=== PATIENT | male | born 1985 | race Hispanic/Latino ===

== ENCOUNTER 2017-02-06 06:25 | Inpatient (IN) | payer OTHER ==
[2017-02-06 06:26] VITALS: BMI 27.2
[2017-02-06] MEDS ORDERED: Levalbuterol 1.25 MG/3 ML Inhal Soln UD IH STA ×2 (07:27→07:30)
--- NOTE | 2017-02-06 07:34 | ED PDOC ---
Arrival/HPI - General Historian: Patient - History of Present Illness Time/Duration: Other (4 day s) Symptom Onset: Gradual Symptom Course: Worsening Context: Home <Angelica Yañez - Last Filed: 02/06/17 10:12> <Heri Santana P - Last Filed: 02/06/17 14:09> - General Chief Complaint: Flu-like Symptoms Time Seen by Provider: 02/06/17 07:15 - History of Present Illness Narrative History of Present Illness (Text): 02/06/17 07:31 Patient is a 32 y/o with pmh of muscular dystrophy, tobacco smoker presenting with cough productive with yellowish sputum, congestion, and subjective fever for 4 days. Patient states since Friday he has not been able to eat, he has been vomiting, the vomitus is non bloody and non bilious. Patient denies abdominal pain, denies dysuria, admits to flatus, no bowel movement since Friday. Patient admits to fatigue, body aches, dizziness, and headache. 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 (Angelica Yañez) Past Medical History - Provider Review Nursing Documentation Reviewed: Yes - Travel History Have you recently traveled outside [place] w/in the past 3 mons?: No - Infectious Disease Hx of Infectious Diseases: None - Tetanus Immunization Tetanus Immunization: Unknown - Musculoskeletal/Rheumatological Other/Comment: muscular dystrophy - Psychiatric Hx Depression: No Hx Emotional Abuse: No Hx Physical Abuse: No Hx Substance Use: No - Past Surgical History Past Surgical History: No Previous - Suicidal Assessment Feels Threatened In Home Enviroment: No <Angelica Yañez - Last Filed: 02/06/17 10:12> Family/Social History - Physician Review Nursing Documentation Reviewed: Yes Family/Social History: No Known Family HX Smoking Status: Heavy Smoker > 10 Cigarettes Daily Hx Alcohol Use: No Hx Substance Use: No <Angelica Yañez - Last Filed: 02/06/17 10:12> Allergies/Home Meds <Angelica Yañez - Last Filed: 02/06/17 10:12> <Heri Santana P - Last Filed: 02/06/17 14:09> Allergies/Adverse Reactions: Allergies No Known Allergies Allergy (Verified 02/06/17 11:36) Home Medications: Home Meds Medication Instructions Recorded Confirmed No Known Home Med 02/06/17 02/06/17 Review of Systems - Review of Systems Constitutional: Fatigue, Fevers Eyes: Normal ENT: Normal Respiratory: Cough, Sputum, Wheezing. absent: SOB Cardiovascular: Palpitations. absent: Chest Pain, Edema, Calf Pain, Orthopnea, Syncope Gastrointestinal: Constipation, Nausea, Vomiting. absent: Abdominal Pain, Diarrhea Genitourinary Male: Normal Musculoskeletal: Normal Skin: Normal Neurological: Headache, Dizziness Endocrine: Normal Hemo/Lymphatic: Normal Psychiatric: Normal <Angelica Yañez - Last Filed: 02/06/17 10:12> Physical Exam Vital Signs Reviewed: Yes Temperature: Afebrile Blood Pressure: Normal Pulse: Tachycardic Respiratory Rate: Normal Appearance: Positive for: Non-Toxic, Comfortable, Ill-Appearing Pain Distress: None Mental Status: Positive for: Alert and Oriented X 3 - Systems Exam Head: Present: Atraumatic, Normocephalic Pupils: Present: PERRL Extroacular Muscles: Present: EOMI Conjunctiva: No: Icteric Mouth: Present: Dry Pharnyx: Present: ERYTHEMA (mild ). No: EXUDATE, TONSILS ENLARGED, Uvular Deviation, Muffled/Hoarse Voice Nose (External): Present: Atraumatic Neck: Present: Normal Range of Motion. No: Meningeal Signs, MIDLINE TENDERNESS , Paraspinal Tenderness, JVD, Lymphadenopathy Respiratory/Chest: Present: Wheezes (lower at the base.). No: Respiratory Distress, Accessory Muscle Use, Decreased Breath Sounds, Rales, Retracting, Rhonchi, Tachypneic, Tender to Palpation Cardiovascular: Present: Regular Rate and Rhythm, Normal S1, S2, Tachycardic. No: Murmurs, Irregular Rhythm, Bradycardic, Rub, Gallop, Muffled Abdomen: Present: Normal Bowel Sounds. No: Tenderness, Distention, Rebound, Guarding Upper Extremity: Present: Normal Inspection. No: Cyanosis, Edema Lower Extremity: Present: Normal Inspection. No: Edema Neurological: Present: GCS=15 Skin: Present: Warm, Dry, Rashes, Normal Color Psychiatric: Present: Alert, Oriented x 3, Normal Insight, Normal Concentration <Angelica Yañez - Last Filed: 02/06/17 10:12> Medical Decision Making Re-evaluation Time: 08:25 - Lab Interpretations I have reviewed the lab results: Yes - RAD Interpretation Physical Science Aide: ED Physician <Angelica Yañez - Last Filed: 02/06/17 10:12> <Heri Santana - Last Filed: 02/06/17 14:09> ED Course and Treatment: 02/06/17 07:38 32 y/o with h/o muscular dystrophy presenting with cough productive with yellowish sputum, congestion, and vomiting for 4 days. Differentials: sepsis, acute bronchitis, flu, Plan: cbc, cmp, ua, ucx, bcx, vbg chest x-ray, ekg, xoponex inhl, solumedrol 60 mg ivp, zofran, tylenol. 30 mg/kg/hr of NS started Discussed with Dr Santana. 02/06/17 08:00 Rectal temp of 105.2, tachycardia and saturating of 92% on room air, patient met sirs criteria, started patient of Rocephin and Zithromax. 02/06/17 08:30 Chest x-ray revealed left lower lobe pneumonia. lactic acid 1.1, wbc of 15.2, with sodium of 130, suspicious for legionella. Urine legionella and mycoplasma IGG and IGM sent. Patient to be admitted to Dr Lancaster's service. Dr Lancaster aware and accepts patient to his service. (Angelica Yañez) Patient Seen With Resident: In agreement with resident note. Patient was seen and evaluated with resident, came up with plan and treatment together. (Heri Santana) - Lab Interpretations Lab Results: 02/06/17 06:50 02/06/17 06:50 Lab Results 02/06/17 08:00: pO2 93 H, VBG pH 7.52 H, VBG pCO2 29.0 L, VBG HCO3 23.7, VBG Total CO2 24.6, VBG O2 Sat (Calc) 99.3 H, VBG Base Excess 2.0, VBG Potassium 3.9 , Glucose 118 H, Lactate 1.1, FiO2 21.0, Sodium 129.0 L, Chloride 93.0 L, Venous Blood Potassium 3.9 02/06/17 07:53: Influenza Typ A,B (EIA) Negative for flu a/b 02/06/17 06:50: Sodium 130 L, Potassium 3.9, Chloride 92 L, Carbon Dioxide 26, Anion Gap 16, BUN 15, Creatinine 0.9, Est GFR ( Amer) > 60, Est GFR (Non- Af Amer) > 60, Random Glucose 113 H, Calcium 9.8, Phosphorus 2.3 L, Magnesium 2.2, Total Bilirubin 1.0, AST 44, ALT 48, Alkaline Phosphatase 72, Total Protein 8.8 H, Albumin 4.8, Globulin 4.0, Albumin/Globulin Ratio 1.2 02/06/17 06:50: WBC 15.1 H, RBC 5.09, Hgb 16.0, Hct 43.7, MCV 85.9, MCH 31.4, MCHC 36.6, RDW 12.8, Plt Count 245, MPV 10.0, Gran % 81.9 H, Lymph % (Auto) 9.5 L, Bibb % (Auto) 8.5 H, Eos % (Auto) 0.0 L, Baso % (Auto) 0.1, Gran # 12.36 H, Lymph # 1.4, Bibb # 1.3 H, Eos # 0.0, Baso # 0.02 - RAD Interpretation Narrative RAD Interpretations (Text): 02/06/17 08:29 Chest x-ray : left lower lobe consolidation. (Angelica Yañez) Radiology Orders: 02/06/17 08:01 CHEST PORTABLE [RAD] Stat - Medication Orders Current Medication Orders: Ceftriaxone Sodium (Rocephin 1 Gram Ivpb) 1 gm in 100 mls @ 100 mls/hr IVPB DAILY AMANDA PRN Reason: Protocol Azithromycin 250 mg/ Sodium (Chloride) 250 mls @ 167 mls/hr IVPB DAILY AMANDA PRN Reason: Protocol Discontinued Medications Acetaminophen (Tylenol 325mg Tab) 650 mg PO STAT STA Stop: 02/06/17 08:08 Last Admin: 02/06/17 08:09 Dose: 650 mg Acetaminophen (Tylenol 325mg Tab) Confirm Administered Dose 650 mg .ROUTE .STK- MED ONE Stop: 02/06/17 08:11 Last Admin: 02/06/17 08:14 Dose: Azithromycin (Zithromax) 100 mg PO STAT STA PRN Reason: Protocol Stop: 02/06/17 08:08 Last Admin: 02/06/17 08:43 Dose: 100 mg Sodium Chloride 1,000 ml/ IV (SUPPLIES) 1,000 mls @ 5,170.98 mls/hr IV ONCE ONE PRN Reason: 60 ML/KG/HR Stop: 02/06/17 07:26 Last Admin: 02/06/17 07:54 Dose: 5,170.98 mls/hr Ceftriaxone Sodium (Rocephin 1 Gram Ivpb) 1 gm in 100 mls @ 200 mls/hr IVPB STAT STA PRN Reason: Protocol Stop: 02/06/17 08:36 Last Admin: 02/06/17 08:15 Dose: 200 mls/hr Sodium Chloride 1,600 ml/ IV (SUPPLIES) 1,600 mls @ 5,170.98 mls/hr IV ONCE ONE PRN Reason: 60 ML/KG/HR Stop: 02/06/17 08:12 Last Admin: 02/06/17 08:28 Dose: 5,170.98 mls/hr Levalbuterol HCl (Xopenex) 1.25 mg IH STAT STA Stop: 02/06/17 07:28 Last Admin: 02/06/17 07:43 Dose: 1.25 mg Levalbuterol HCl (Xopenex) 1.25 mg IH STAT STA Stop: 02/06/17 07:31 Last Admin: 02/06/17 08:03 Dose: 1.25 mg Methylprednisolone (Solu-Medrol) 60 mg IVP STAT STA Stop: 02/06/17 07:28 Last Admin: 02/06/17 07:43 Dose: 60 mg Ondansetron HCl (Zofran Inj) 4 mg IVP STAT STA Stop: 02/06/17 07:36 Last Admin: 02/06/17 07:44 Dose: 4 mg Pneumococcal Polyvalent Vaccine (Pneumovax 23 Vaccine) 0.5 ml IM .ONCE ONE Stop: 02/06/17 13:08 <Angelica Yañez - Last Filed: 02/06/17 10:12> - Scribe Statement The provider has reviewed the documentation as recorded by the Scribe <Heri Santana - Last Filed: 02/06/17 14:09> - Scribe Statement Martir Triplett Provider Scribe Attestation: All medical record entries made by the Scribe were at my direction and personally dictated by me. I have reviewed the chart and agree that the record accurately reflects my personal performance of the history, physical exam, medical decision making, and the department course for this patient. I have also personally directed, reviewed, and agree with the discharge instructions and disposition. (Heri Santana) Disposition/Present on Arrival - Present on Arrival Any Indicators Present on Arrival: No History of DVT/PE: No History of Uncontrolled Diabetes: No Urinary Catheter: No History of Decub. Ulcer: No History Surgical Site Infection Following: None - Disposition Have Diagnosis and Disposition been Completed?: Yes Disposition Time: 08:30 Patient Plan: Admission <Angelica Yañez - Last Filed: 02/06/17 10:12> <Heri Santana - Last Filed: 02/06/17 14:09> - Disposition Diagnosis: Sepsis, Pneumonia Disposition: HOSPITALIZED Patient Problems: Current Active Problems Problem Status Onset Pneumonia Acute Sepsis Acute Condition: STABLE
[2017-02-06 07:51] LABS: BASO # 0.02 K/mm3 (0.0-2.0); BASO % 0.1 % (0.0-3.0); GRAN # 12.36 (1.4-6.5); GRAN % 81.9 % (50.0-68.0); LYMPH # 1.4 (1.2-3.4); LYMPH % 9.5 % (22.0-35.0); MEAN CELL VOLUME 85.9 fL (80.0-105.0); MEAN CORPUSCULAR HEMOGLOBIN 31.4 pg (25.0-35.0); MEAN CORPUSCULAR HGB CONC 36.6 g/dl (31.0-37.0); MONO # 1.3 (0.1-0.6); MONO % 8.5 % (1.0-6.0); PLATELET COUNT 245 10^3/uL (120.0-450.0); RBC 5.09 10^6/uL (3.5-6.1); RED CELL DISTRIBUTION WIDTH 12.8 % (11.5-14.5); WHITE BLOOD COUNT 15.1 10^3/ul (4.5-11.0)
[2017-02-06 08:03] LABS: ALB/GLOB RATIO 1.2 (1.1-1.8); ALBUMIN 4.8 g/dL (3.0-4.8); ALT/SGPT 48 U/L (7-56); AST/SGOT 44 U/L (15-59); BLOOD UREA NITROGEN 15 mg/dL (7-21); CALCIUM 9.8 mg/dL (8.4-10.5); GFR AFRICAN-AMERICAN > 60; GFR NON-AFRICAN AMERICAN > 60; MAGNESIUM 2.2 mg/dL (1.7-2.2)
[2017-02-06] MEDS ORDERED: Azithromycin 100 mg/5 ml Susp (15 ml) PO STA (08:07)
[2017-02-06] MEDS ORDERED: cefTRIAXone 1 gm 1 GM/100 ML BAG IVPB STA (08:07)
[2017-02-06 08:20] LABS: VENOUS BLOOD GAS PO2 93 mm/Hg (30-55); VENOUS BLOOD PH 7.52 (7.32-7.43)
--- NOTE | 2017-02-06 09:32 | RAD ---
HISTORY: cough COMPARISON: No prior. FINDINGS: LUNGS: There is a focal area of consolidation at the left lung base consistent with pneumonia PLEURA: No significant pleural effusion identified, no pneumothorax apparent. CARDIOVASCULAR: Normal. OSSEOUS STRUCTURES: No significant abnormalities. VISUALIZED UPPER ABDOMEN: Normal. OTHER FINDINGS: None. IMPRESSION: Left lower lobe pneumonia
--- NOTE | 2017-02-06 12:04 | CARD ---
APPROVED REPORT EKG Measurement Heart [id number] <Conclusion> Sinus tachycardia Possible Left atrial enlargement Borderline ECG
[2017-02-06] MEDS ORDERED: Pneumococcal 23-Valent Vaccine IM ONE (13:07)
[2017-02-06 15:14] LABS: URINE BILIRUBIN NEGATIVE (NEGATIVE); URINE BLOOD MODERATE (NEGATIVE); URINE GLUCOSE (UA) NEGATIVE (NEGATIVE); URINE LEUKOCYTE ESTERASE NEGATIVE Leu/uL (NEGATIVE); URINE NITRATE NEGATIVE (NEGATIVE); URINE PROTEIN 100 mg/dL (<30 mg/dL)
[2017-02-06 15:18] LABS: URINE APPEARANCE CLEAR (CLEAR); URINE COLOR YELLOW (YELLOW)
[2017-02-06 15:24] LABS: URINE BACTERIA MANY (NEG); URINE EPITHELIAL CELLS 0 - 2 /hpf (0-5); URINE HYALINE CAST 0 - 2 /hpf; URINE RBC 15 - 20 /hpf (0-2)
[2017-02-06 15:25] LABS: URINE AMORPHOUS SEDIMENT FEW; URINE COARSE GRANULAR CAST TRACE /hpf (0-2)
[2017-02-06] MEDS ORDERED: Sodium Chloride 0.9% 1,000 ML IV SCH (17:00)
--- NOTE | 2017-02-06 17:24 | CP.PCM.CON ---
History of Present Illness - History of Present Illness History of Present Illness: .NEURO CONSULT NOTE: 02/06/17 CHIEF COMPLAINT: HISTORY OF MUSCULAR DYSTROPHY HPI: THIS IS A 32 YEAR OLD MAN WITH H/O MUSCULAR DYSTROPHY WHO IS SEEING A NEUROLOGIST IN [place] WHO PRESENTED TO THE HOSPITAL WITH PRODUCTIVE COUGH, YELLOW SPUTUM, FEVER, CONGESTION FOR 4 DAYS. HE WAS FOUND TO HAVE LEFT LOWE LOBE PNEUMONIA FOR WHICH HE'S ON ANTIBIOTICS. CALLED FOR H/O MUSCULAR DYSTROPHY WHICH IS STABLE CURRENTLY AND IS NOT AFFECTING HIS HOSPITAL COURSE. NO NEW MUSCLE WEAKNESS OR DIFFICULTY SWALLOWING. NO CRAMPS. NO PARASTHESIAS IN THE EXTREMITIES. ROS: 14 POINT REVIEW OF SYMPTOMS IS NEGATIVE PER HPI. ALLERGIES: NONE SOCIAL HISTORY: NO ILLICIT DRUG USE, POSITIVE FOR SMOKING, AND NO ETOH USE. FAMILY: NON CONTRIBUTORY. MEDICATIONS: REVIEWED BY NURSE'S RECONCILIATION SHEET. PAST MEDICAL HISTORY: MUSCULAR DYSTROPHY PHYSICAL EXAM: VITAL SIGNS: REVIEWED BY THE CHART GENERAL EXAM: PATIENT SEEN IN BED, IN NO ACUTE DISTRESS HEENT: PERRLA, EOMI, NECK SUPPLE, NO JVD, NO ADENOPATHY CVS: S1, S2, RRR, NO MURMURS NOTED LUNGS: CLEAR TO AUSCULTATION, NO ADVENTITIOUS SOUNDS ABDOMEN: SOFT AND NONTENDER EXTREMITIES: NO CLUBBING OR CYANOSIS. PP 2+ B/L. HAS EXTREME ENLARGEMENT OF HIS B/L CALVES NEURO: PT IS ALERT AND ORIENTED TO PERSON, PLACE, AND YEAR. , RECALL TO 5 MINUTES 3/3, SPEECH IS FLUENT WITHOUT ERRORS, CN II-XII INTACT, MOTOR EXAM: NORMAL TONE, NORMAL BULK OF MUSCLE, MOVES ALL EXTREMITIES EQUALLY, NO PRONATOR DRIFT SEEN. 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 COORDINATION: FINGER TO NOSE IS INTACT. HEEL TO FRAGA IS INTACT GAIT: NORMAL. LABS: REVIEWED BY THE CHART. ASSESSMENT AND PLAN: THIS IS A 32 YEAR OLD MAN WITH H/O MUSCULAR DYSTROPHY WHO IS SEEING A NEUROLOGIST IN [place] WHO PRESENTED TO THE HOSPITAL WITH PRODUCTIVE COUGH, YELLOW SPUTUM, FEVER, CONGESTION FOR 4 DAYS. HE WAS FOUND TO HAVE LEFT LOWE LOBE PNEUMONIA FOR WHICH HE'S ON ANTIBIOTICS. CALLED FOR H/O MUSCULAR DYSTROPHY WHICH IS STABLE CURRENTLY AND IS NOT AFFECTING HIS HOSPITAL COURSE. NO NEW MUSCLE WEAKNESS OR DIFFICULTY SWALLOWING. NO CRAMPS. NO PARASTHESIAS IN THE EXTREMITIES. IMPRESSION: MUSCULAR DYSTROPHY IS CURRENTLY STABLE. MORE OF A BAKER'S TYPE. CONTINUE WITH TX FOR PNEUMONIA AND WILL FOLLOW WITH ME OUTPATIENT FOR DETENTION MANAGEMENT OF MUSCULAR DYSTROPHY. SMOKING CESSATION ADVISED. THANK YOU. Lloyd TRIPLETT MD Past Patient History - Infectious Disease Hx of Infectious Diseases: None - Tetanus Immunizations Tetanus Immunization: Unknown - Past Social History Smoking Status: Current Some Days Smoker - CARDIAC Hx Cardiac Disorders: No - PULMONARY Hx Respiratory Disorders: Yes (SMOKES CIGARETTES 1/2 PPD) - NEUROLOGICAL Hx Neurological Disorder: Yes (MUSCULAR DYSTROPHY) - HEENT Hx HEENT Problems: No - RENAL Hx Chronic Kidney Disease: No - ENDOCRINE/METABOLIC Hx Endocrine Disorders: No - HEMATOLOGICAL/ONCOLOGICAL Hx Blood Disorders: Yes (LEGIONELLA ? 02-06-17) - INTEGUMENTARY Hx Dermatological Problems: No - MUSCULOSKELETAL/RHEUMATOLOGICAL Hx Musculoskeletal Disorders: Yes Hx Falls: No Other/Comment: muscular dystrophy - GASTROINTESTINAL Hx Gastrointestinal Disorders: No - GENITOURINARY/GYNECOLOGICAL Hx Genitourinary Disorders: No - PSYCHIATRIC Hx Psychophysiologic Disorder: Yes (SMOKES 1/2 PPD CIGARETTES) Hx Depression: No Hx Emotional Abuse: No Hx Physical Abuse: No Hx Substance Use: No - SURGICAL HISTORY Hx Surgeries: No Meds Allergies/Adverse Reactions: Allergies Allergy/AdvReac Type Severity Reaction Status Date / Time No Known Allergies Allergy Verified 02/06/17 11:36 - Medications Medications: Current Medications Acetaminophen (Tylenol 325mg Tab) 650 mg PO Q4H PRN PRN Reason: Fever >100.4 F Ceftriaxone Sodium (Rocephin 1 Gram Ivpb) 1 gm in 100 mls @ 100 mls/hr IVPB DAILY AMANDA PRN Reason: Protocol Azithromycin 250 mg/ Sodium (Chloride) 250 mls @ 167 mls/hr IVPB DAILY AMANDA PRN Reason: Protocol Sodium Chloride (Sodium Chloride 0.9%) 1,000 mls @ 75 mls/hr IV .[id number] AMANDA Results - Vital Signs Recent Vital Signs: Last Vital Signs Temp 99.4 F 02/06/17 16:50 Pulse 77 02/06/17 16:00 Resp 20 02/06/17 16:00 BP 153/85 H 02/06/17 16:00 Pulse Ox 97 02/06/17 16:00 - Labs Result Diagrams: 02/06/17 06:50 02/06/17 06:50 Labs: Laboratory Results - last 24 hr 02/06/17 11:00 Urine Color Yellow Urine Appearance Clear Urine pH 6.0 Ur Specific [place] 1.015 Urine Protein 100 H Urine Glucose (UA) Negative Urine Ketones 40 H Urine Blood Moderate H Urine Nitrate Negative Urine Bilirubin Negative Urine Urobilinogen 1.0 H Ur Leukocyte Esterase Negative Urine RBC 15 - 20 Urine WBC 1 - 3 Ur Epithelial Cells 0 - 2 Amorphous Sediment Few Urine Bacteria Many Hyaline Casts 0 - 2 Coarse Granular Casts Trace H Urine Other Uyeast
--- NOTE | 2017-02-06 19:26 | CP.PCM.CON ---
History of Present Illness - History of Present Illness History of Present Illness: 32 YO WITH MUSC.DYS ADMITTED WITH PULM SYMPTOMS FEVER COUGH Review of Systems - Constitutional Constitutional: Anorexia, Chills, Fever, Malaise, Weakness - Cardiovascular Cardiovascular: Rapid Heart Rate - Respiratory Respiratory: Cough, Dyspnea Past Patient History - Infectious Disease Hx of Infectious Diseases: None - Tetanus Immunizations Tetanus Immunization: Unknown - Past Medical History & Family History Past Medical History?: Yes - Past Social History Smoking Status: Current Some Days Smoker - CARDIAC Hx Cardiac Disorders: No - PULMONARY Hx Respiratory Disorders: Yes (SMOKES CIGARETTES 1/2 PPD) - NEUROLOGICAL Hx Neurological Disorder: Yes (MUSCULAR DYSTROPHY) - HEENT Hx HEENT Problems: No - RENAL Hx Chronic Kidney Disease: No - ENDOCRINE/METABOLIC Hx Endocrine Disorders: No - HEMATOLOGICAL/ONCOLOGICAL Hx Blood Disorders: Yes (LEGIONELLA ? 02-06-17) - INTEGUMENTARY Hx Dermatological Problems: No - MUSCULOSKELETAL/RHEUMATOLOGICAL Hx Musculoskeletal Disorders: Yes Hx Falls: No Other/Comment: muscular dystrophy - GASTROINTESTINAL Hx Gastrointestinal Disorders: No - GENITOURINARY/GYNECOLOGICAL Hx Genitourinary Disorders: No - PSYCHIATRIC Hx Psychophysiologic Disorder: Yes (SMOKES 1/2 PPD CIGARETTES) Hx Depression: No Hx Emotional Abuse: No Hx Physical Abuse: No Hx Substance Use: No - SURGICAL HISTORY Hx Surgeries: No Meds Allergies/Adverse Reactions: Allergies Allergy/AdvReac Type Severity Reaction Status Date / Time No Known Allergies Allergy Verified 02/06/17 11:36 - Medications Medications: Current Medications Acetaminophen (Tylenol 325mg Tab) 650 mg PO Q4H PRN PRN Reason: Fever >100.4 F Last Admin: 02/06/17 19:01 Dose: 650 mg Ceftriaxone Sodium (Rocephin 1 Gram Ivpb) 1 gm in 100 mls @ 100 mls/hr IVPB DAILY AMANDA PRN Reason: Protocol Azithromycin 250 mg/ Sodium (Chloride) 250 mls @ 167 mls/hr IVPB DAILY AMANDA PRN Reason: Protocol Sodium Chloride (Sodium Chloride 0.9%) 1,000 mls @ 75 mls/hr IV .[id number] [facility] Last Admin: 02/06/17 17:27 Dose: 75 mls/hr Physical Exam - Constitutional Appears: Well - Head Exam Head Exam: ATRAUMATIC, NORMAL INSPECTION, NORMOCEPHALIC - Eye Exam Eye Exam: EOMI, Normal appearance, PERRL Pupil Exam: NORMAL ACCOMODATION, PERRL - ENT Exam ENT Exam: Mucous Membranes Moist, Normal Exam - Neck Exam Neck exam: Positive for: Normal Inspection - Respiratory Exam Respiratory Exam: Clear to Auscultation Bilateral, NORMAL BREATHING PATTERN - Cardiovascular Exam Cardiovascular Exam: REGULAR RHYTHM - GI/Abdominal Exam GI & Abdominal Exam: Normal Bowel Sounds, Soft. absent: Tenderness - Rectal Exam Rectal Exam: NORMAL INSPECTION - Exam Exam: Circumcision, NORMAL INSPECTION External exam: NORMAL EXTERNAL EXAM Speculum exam: NORMAL SPECULUM EXAM Bimanual exam: NORMAL BIMANUAL EXAM - Extremities Exam Extremities exam: Positive for: normal inspection - Back Exam Back exam: NORMAL INSPECTION - Neurological Exam Neurological exam: Alert, CN II-XII Intact, Normal Gait, Oriented x3, Reflexes Normal - Psychiatric Exam Psychiatric exam: Normal Affect, Normal Mood - Skin Skin Exam: Dry, Intact, Normal Color, Warm Results - Vital Signs Recent Vital Signs: Last Vital Signs Temp 99.4 F 02/06/17 16:50 Pulse 77 02/06/17 16:00 Resp 20 02/06/17 16:00 BP 153/85 H 02/06/17 16:00 Pulse Ox 97 02/06/17 16:00 - Labs Result Diagrams: 02/06/17 06:50 02/06/17 06:50 Labs: Laboratory Results - last 24 hr 02/06/17 11:00 Urine Color Yellow Urine Appearance Clear Urine pH 6.0 Ur Specific [place] 1.015 Urine Protein 100 H Urine Glucose (UA) Negative Urine Ketones 40 H Urine Blood Moderate H Urine Nitrate Negative Urine Bilirubin Negative Urine Urobilinogen 1.0 H Ur Leukocyte Esterase Negative Urine RBC 15 - 20 Urine WBC 1 - 3 Ur Epithelial Cells 0 - 2 Amorphous Sediment Few Urine Bacteria Many Hyaline Casts 0 - 2 Coarse Granular Casts Trace H Urine Other Uyeast Assessment & Plan (1) Severe sepsis Status: Acute (2) Left lower lobe pneumonia Status: Acute (3) Community acquired bacterial pneumonia Status: Acute - Assessment and Plan (Free Text) Assessment: SEVERE SEPSIS WITH LEFT LOWER COMUNITY ACQUIRED PNA Plan: SEE ORDERS ROCEPHIN/AZITH URINE FOR LEG AG HIRSCH CULTURE PROCAL - Date & Time Date: 02/06/17 Time: 19:00
--- NOTE | 2017-02-06 22:49 | CP.PCM.HP ---
History of Present Illness - History of Present Illness History of Present Illness: Pt coming to hospital due to fever, chills, cough productive, sweats. He has hx of muscular dystrophy and has been stable and not on any meds. His symptoms started 3 days ago. + ALMONTE, and dizziness. Present on Admission - Present on Admission Any Indicators Present on Admission: No History of DVT/PE: No History of Uncontrolled Diabetes: No Urinary Catheter: No Decubitus Ulcer Present: No Review of Systems - Review of Systems Systems not reviewed;Unavailable: Respiratory Distress - Constitutional Constitutional: Excessive Sweating, Fatigue, Fever, Headache, Lethargy, Malaise , Night Sweats, Weakness - EENT Eyes: absent: Diplopia, Discharge, Dry Eye, Pain, Photophobia, Tunnel Vision, Other Visual Disturbances Nose/Mouth/Throat: absent: Post Nasal Drip, Sinus Pain, Dysphagia, Hoarsness, Mouth Pain - Cardiovascular Cardiovascular: absent: Chest Pain, Chest Pain at Rest, Pain Radiating to Arm/ Neck/Jaw, Leg Edema, Leg Ulcers, Orthopnea, Palpitations - Gastrointestinal Gastrointestinal: Nausea. absent: Change in Bowel Habits, Change in Stool Character, Constipation, Cramping, Melena, Odynophagia, Vomiting - Genitourinary Genitourinary: absent: Difficulty Urinating, Flank Pain, Hematuria, Urinary Hesitance, Freq UTI - Musculoskeletal Musculoskeletal: Muscle Cramps, Muscle Weakness. absent: Abnormal Gait, Arthralgias, Atrophy, Neck Pain - Integumentary Integumentary: absent: Erythema, Furuncle, Hirsutism, Photosensitivity, Pruritus , Unusual Bruising - Neurological Neurological: absent: Abnormal Hearing, Behavioral Changes, Convulsions, Disequilibrium, Frequent Falls, Loss of Vision, Memory Loss, Sensory Deficit, Other Visual Disturbances - Endocrine Endocrine: absent: Deepening of Voice, Palpitations, Polydipsia, Polyphagia - Hematologic/Lymphatic Hematologic: absent: Easy Bruising Past Patient History - Infectious Disease Hx of Infectious Diseases: None - Tetanus Immunizations Tetanus Immunization: Unknown - Past Medical History & Family History Past Medical History?: Yes - Past Social History Smoking Status: Current Some Days Smoker Chewing Tobacco Use: Yes - CARDIAC Hx Cardiac Disorders: No - PULMONARY Hx Respiratory Disorders: Yes (SMOKES CIGARETTES 1/2 PPD) - NEUROLOGICAL Hx Neurological Disorder: Yes (MUSCULAR DYSTROPHY) - HEENT Hx HEENT Problems: No - RENAL Hx Chronic Kidney Disease: No - ENDOCRINE/METABOLIC Hx Endocrine Disorders: No - HEMATOLOGICAL/ONCOLOGICAL Hx Blood Disorders: Yes (LEGIONELLA ? 02-06-17) - INTEGUMENTARY Hx Dermatological Problems: No - MUSCULOSKELETAL/RHEUMATOLOGICAL Hx Musculoskeletal Disorders: Yes Hx Falls: No Other/Comment: muscular dystrophy - GASTROINTESTINAL Hx Gastrointestinal Disorders: No - GENITOURINARY/GYNECOLOGICAL Hx Genitourinary Disorders: No - PSYCHIATRIC Hx Psychophysiologic Disorder: Yes (SMOKES 1/2 PPD CIGARETTES) Hx Depression: No Hx Emotional Abuse: No Hx Physical Abuse: No Hx Substance Use: No - SURGICAL HISTORY Hx Surgeries: No Meds Allergies/Adverse Reactions: Allergies Allergy/AdvReac Type Severity Reaction Status Date / Time No Known Allergies Allergy Verified 02/06/17 11:36 Physical Exam - Constitutional Appears: Toxic - Head Exam Head Exam: ATRAUMATIC, NORMAL INSPECTION, NORMOCEPHALIC - Eye Exam Eye Exam: EOMI, Normal appearance, PERRL Pupil Exam: NORMAL ACCOMODATION, PERRL - Neck Exam Neck exam: Positive for: Normal Inspection - Respiratory Exam Respiratory Exam: Clear to Auscultation Bilateral, Rhonchi, NORMAL BREATHING PATTERN. absent: Rales, Wheezes - Cardiovascular Exam Cardiovascular Exam: REGULAR RHYTHM, RRR, +S1, +S2. absent: JVD, Rubs - GI/Abdominal Exam GI & Abdominal Exam: Normal Bowel Sounds, Soft. absent: Distended, Organomegaly , Pulsatile Mass, Tenderness - Exam Exam: NORMAL INSPECTION - Back Exam Back exam: NORMAL INSPECTION - Neurological Exam Neurological exam: Alert, CN II-XII Intact, Normal Gait, Oriented x3, Reflexes Normal - Skin Skin Exam: Dry, Intact, Normal Color, Warm Results - Vital Signs Recent Vital Signs: Last Vital Signs Temp 99.4 F 02/06/17 16:50 Pulse 77 02/06/17 16:00 Resp 20 02/06/17 16:00 BP 153/85 H 02/06/17 16:00 Pulse Ox 97 02/06/17 16:00 - Labs Result Diagrams: 02/06/17 06:50 02/06/17 06:50 Labs: Laboratory Results - last 24 hr 02/06/17 02/06/17 11:00 11:00 Urine Color Yellow Urine Appearance Clear Urine pH 6.0 Ur Specific [place] 1.015 Urine Protein 100 H Urine Glucose (UA) Negative Urine Ketones 40 H Urine Blood Moderate H Urine Nitrate Negative Urine Bilirubin Negative Urine Urobilinogen 1.0 H Ur Leukocyte Esterase Negative Urine RBC 15 - 20 Urine WBC 1 - 3 Ur Epithelial Cells 0 - 2 Amorphous Sediment Few Urine Bacteria Many Hyaline Casts 0 - 2 Coarse Granular Casts Trace H Urine Other Uyeast Ur L.pneumophila Ag Negative Assessment & Plan - Assessment and Plan (Free Text) Assessment: pneumonia - CAP Muscuar Dystrophy smoking Plan: Admit to hospital for sepsis. Start on Abx. ID evaluation. Pulomnary and Neuro evaluation. Tylenl prn PT evaluation. Follow labs. BCx. - Date & Time Date: 02/06/17 Time: 22:49
--- NOTE | 2017-02-06 23:12 | CP.PCM.CON ---
History of Present Illness - History of Present Illness History of Present Illness: THIS IS A 32 YEAR OLD MAN WITH H/O MUSCULAR DYSTROPHY WHO IS SEEING A NEUROLOGIST IN [place] WHO PRESENTED TO THE HOSPITAL WITH PRODUCTIVE COUGH, YELLOW SPUTUM, FEVER, CONGESTION FOR 4 DAYS. HE WAS FOUND TO HAVE LEFT LOWE LOBE PNEUMONIA FOR WHICH HE'S ON ANTIBIOTICSTHIS has cough and SOB for the last few days Review of Systems - Review of Systems Systems not reviewed;Unavailable: Respiratory Distress - Constitutional Constitutional: Fatigue, Fever, Headache, Lethargy, Malaise, Night Sweats, Snoring - EENT Eyes: absent: Blurred Vision Ears: absent: Ear Discharge Nose/Mouth/Throat: Nasal Congestion, Dry Mouth. absent: Nasal Trauma, Sinus Pressure - Cardiovascular Cardiovascular: Orthopnea. absent: Chest Pain, Diaphoresis, Edema - Respiratory Respiratory: Cough, Dyspnea, Excessive Mucous Production, Change in Mucous Color. absent: Hemoptysis - Gastrointestinal Gastrointestinal: absent: Abdominal Pain, Bloating, Cramping, Diarrhea, Dyspepsia - Genitourinary Genitourinary: absent: Change in Urinary Stream, Difficulty Urinating - Musculoskeletal Musculoskeletal: absent: Arthralgias, Atrophy, Back Pain - Neurological Neurological: absent: Abnormal Movements, Abnormal Speech, Behavioral Changes, Confusion - Psychiatric Psychiatric: absent: Anxiety, Confusion, Depression - Endocrine Endocrine: absent: Change in Body Appearance - Hematologic/Lymphatic Hematologic: absent: Easy Bleeding, Easy Bruising Past Patient History - Infectious Disease Hx of Infectious Diseases: None - Tetanus Immunizations Tetanus Immunization: Unknown - Past Medical History & Family History Past Medical History?: Yes - Past Social History Smoking Status: Current Some Days Smoker Chewing Tobacco Use: Yes - CARDIAC Hx Cardiac Disorders: No - PULMONARY Hx Respiratory Disorders: Yes (SMOKES CIGARETTES 1/2 PPD) - NEUROLOGICAL Hx Neurological Disorder: Yes (MUSCULAR DYSTROPHY) - HEENT Hx HEENT Problems: No - RENAL Hx Chronic Kidney Disease: No - ENDOCRINE/METABOLIC Hx Endocrine Disorders: No - HEMATOLOGICAL/ONCOLOGICAL Hx Blood Disorders: Yes (LEGIONELLA ? 02-06-17) - INTEGUMENTARY Hx Dermatological Problems: No - MUSCULOSKELETAL/RHEUMATOLOGICAL Hx Musculoskeletal Disorders: Yes Hx Falls: No Other/Comment: muscular dystrophy - GASTROINTESTINAL Hx Gastrointestinal Disorders: No - GENITOURINARY/GYNECOLOGICAL Hx Genitourinary Disorders: No - PSYCHIATRIC Hx Psychophysiologic Disorder: Yes (SMOKES 1/2 PPD CIGARETTES) Hx Depression: No Hx Emotional Abuse: No Hx Physical Abuse: No Hx Substance Use: No - SURGICAL HISTORY Hx Surgeries: No Meds Allergies/Adverse Reactions: Allergies Allergy/AdvReac Type Severity Reaction Status Date / Time No Known Allergies Allergy Verified 02/06/17 11:36 - Medications Medications: Current Medications Acetaminophen (Tylenol 325mg Tab) 650 mg PO Q4H PRN PRN Reason: Fever >100.4 F Last Admin: 02/06/17 19:01 Dose: 650 mg Ceftriaxone Sodium (Rocephin 1 Gram Ivpb) 1 gm in 100 mls @ 100 mls/hr IVPB DAILY AMANDA PRN Reason: Protocol Azithromycin 250 mg/ Sodium (Chloride) 250 mls @ 167 mls/hr IVPB DAILY AMANDA PRN Reason: Protocol Sodium Chloride (Sodium Chloride 0.9%) 1,000 mls @ 75 mls/hr IV [id number] AMANDA Last Admin: 02/06/17 17:27 Dose: 75 mls/hr Results - Vital Signs Recent Vital Signs: Last Vital Signs Temp 99.4 F 02/06/17 16:50 Pulse 77 02/06/17 16:00 Resp 20 02/06/17 16:00 BP 153/85 H 02/06/17 16:00 Pulse Ox 97 02/06/17 16:00 - Labs Result Diagrams: 02/06/17 06:50 02/06/17 06:50 Labs: Laboratory Results - last 24 hr 02/06/17 02/06/17 11:00 11:00 Urine Color Yellow Urine Appearance Clear Urine pH 6.0 Ur Specific [place] 1.015 Urine Protein 100 H Urine Glucose (UA) Negative Urine Ketones 40 H Urine Blood Moderate H Urine Nitrate Negative Urine Bilirubin Negative Urine Urobilinogen 1.0 H Ur Leukocyte Esterase Negative Urine RBC 15 - 20 Urine WBC 1 - 3 Ur Epithelial Cells 0 - 2 Amorphous Sediment Few Urine Bacteria Many Hyaline Casts 0 - 2 Coarse Granular Casts Trace H Urine Other Uyeast Ur L.pneumophila Ag Negative - Imaging and Cardiology Chest x-ray Additional comment: pneumonia Assessment & Plan (1) Community acquired bacterial pneumonia Assessment and Plan: anti biotics, inhale broncho dilators, cough supp. Status: Acute (2) Left lower lobe pneumonia Status: Acute (3) Muscular dystrophy Assessment and Plan: stable Status: Chronic
[2017-02-07 06:56] LABS: HEMOGLOBIN 13.9 gm/dL (14.0-18.0); MEAN CELL VOLUME 87.6 fL (80.0-105.0); MEAN CORPUSCULAR HEMOGLOBIN 30.8 pg (25.0-35.0); MEAN CORPUSCULAR HGB CONC 35.2 g/dl (31.0-37.0); MEAN PLATELET VOLUME 10.2 fl (7.0-11.0); RBC 4.51 10^6/uL (3.5-6.1); RED CELL DISTRIBUTION WIDTH 13.5 % (11.5-14.5); WHITE BLOOD COUNT 14.4 10^3/ul (4.5-11.0)
[2017-02-07 07:18] LABS: ALB/GLOB RATIO 1.1 (1.1-1.8); ALT/SGPT 76 U/L (7-56); AST/SGOT 67 U/L (15-59); BLOOD UREA NITROGEN 18 mg/dL (7-21); CALCIUM 9.3 mg/dL (8.4-10.5); GFR AFRICAN-AMERICAN > 60; GFR NON-AFRICAN AMERICAN > 60
[2017-02-07] MEDS: Levalbuterol 0.63 MG/3 ML Inhal Soln UD IH SCH ×3 (07:49→20:14)
[2017-02-07] MEDS: Azithromycin 250 MG in Sodium Chloride 0.9% 250 ML IVPB SCH (09:58)
--- NOTE | 2017-02-07 10:09 | CP.PCM.PN ---
Subjective - Date & Time of Evaluation Date of Evaluation: 02/07/17 Time of Evaluation: 09:15 - Subjective Subjective: DOING BETTER Objective - Vital Signs/Intake and Output Vital Signs (last 24 hours): Temp Pulse Resp BP Pulse Ox 98.4 F 89 20 128/88 95 02/07/17 07:30 02/07/17 07:30 02/07/17 07:30 02/07/17 07:30 02/07/17 07:30 Intake and Output: 02/07/17 02/07/17 06:59 18:59 Intake Total 1800 Balance 1800 - Medications Medications: Current Medications Acetaminophen (Tylenol 325mg Tab) 650 mg PO Q4H PRN PRN Reason: Fever >100.4 F Last Admin: 02/06/17 19:01 Dose: 650 mg Benzonatate (Tessalon Perles) 100 mg PO TID [facility] Last Admin: 02/07/17 10:01 Dose: 100 mg Ceftriaxone Sodium (Rocephin 1 Gram Ivpb) 1 gm in 100 mls @ 100 mls/hr IVPB DAILY AMANDA PRN Reason: Protocol Azithromycin 250 mg/ Sodium (Chloride) 250 mls @ 167 mls/hr IVPB DAILY AMANDA PRN Reason: Protocol Last Admin: 02/07/17 09:58 Dose: 167 mls/hr Levalbuterol HCl (Xopenex) 0.63 mg IH [id number] [facility] Last Admin: 02/07/17 07:49 Dose: 0.63 mg - Labs Labs: 02/07/17 06:30 02/07/17 06:30 - Constitutional Appears: Well - Head Exam Head Exam: ATRAUMATIC, NORMAL INSPECTION, NORMOCEPHALIC - Eye Exam Eye Exam: EOMI, Normal appearance, PERRL Pupil Exam: NORMAL ACCOMODATION, PERRL - ENT Exam ENT Exam: Mucous Membranes Moist, Normal Exam - Neck Exam Neck Exam: Full ROM, Normal Inspection. absent: Lymphadenopathy - Respiratory Exam Respiratory Exam: Clear to Ausculation Bilateral, NORMAL BREATHING PATTERN - Cardiovascular Exam Cardiovascular Exam: REGULAR RHYTHM, +S1, +S2. absent: Murmur - GI/Abdominal Exam GI & Abdominal Exam: Soft, Normal Bowel Sounds. absent: Tenderness - Rectal Exam Rectal Exam: NORMAL INSPECTION - Exam Exam: Circumcision, NORMAL INSPECTION External exam: NORMAL EXTERNAL EXAM Speculum exam: NORMAL SPECULUM EXAM Bimanual exam: NORMAL BIMANUAL EXAM - Extremities Exam Extremities Exam: Full ROM, Normal Capillary Refill, Normal Inspection. absent : Joint Swelling, Pedal Edema - Back Exam Back Exam: NORMAL INSPECTION - Neurological Exam Neurological Exam: Alert, Awake, CN II-XII Intact, Normal Gait, Oriented x3 - Psychiatric Exam Psychiatric exam: Normal Affect, Normal Mood - Skin Skin Exam: Dry, Intact, Normal Color, Warm Assessment and Plan (1) Severe sepsis Status: Acute (2) Left lower lobe pneumonia Status: Acute (3) Community acquired bacterial pneumonia Status: Acute - Assessment and Plan (Free Text) Plan: PRESENT TX CK PROCAL
[2017-02-07] MEDS: cefTRIAXone 1 gm 1 GM/100 ML BAG IVPB SCH (12:11)
--- NOTE | 2017-02-07 17:39 | CP.PCM.PN ---
Subjective - Date & Time of Evaluation Date of Evaluation: 02/07/17 Time of Evaluation: 14:00 - Subjective Subjective: THIS IS A 32 YEAR OLD MAN WITH H/O MUSCULAR DYSTROPHY WHO IS SEEING A NEUROLOGIST IN [place] WHO PRESENTED TO THE HOSPITAL WITH PRODUCTIVE COUGH, YELLOW SPUTUM, FEVER, CONGESTION FOR 4 DAYS. HE WAS FOUND TO HAVE LEFT LOWE LOBE PNEUMONIA FOR WHICH HE'S ON ANTIBIOTICSTHIS little better, stile has cough and SOB Objective - Vital Signs/Intake and Output Vital Signs (last 24 hours): Temp Pulse Resp BP Pulse Ox 98.8 F 89 20 128/88 95 02/07/17 13:11 02/07/17 07:30 02/07/17 07:30 02/07/17 07:30 02/07/17 07:30 Intake and Output: 02/07/17 02/07/17 06:59 18:59 Intake Total 1800 780 Balance 1800 780 - Medications Medications: Current Medications Acetaminophen (Tylenol 325mg Tab) 650 mg PO Q4H PRN PRN Reason: Fever >100.4 F Last Admin: 02/07/17 12:11 Dose: 650 mg Benzonatate (Tessalon Perles) 100 mg PO TID AMANDA Last Admin: 02/07/17 17:27 Dose: Not Given Ceftriaxone Sodium (Rocephin 1 Gram Ivpb) 1 gm in 100 mls @ 100 mls/hr IVPB DAILY AMANDA PRN Reason: Protocol Last Admin: 02/07/17 12:11 Dose: 100 mls/hr Azithromycin 250 mg/ Sodium (Chloride) 250 mls @ 167 mls/hr IVPB DAILY AMANDA PRN Reason: Protocol Last Admin: 02/07/17 09:58 Dose: 167 mls/hr Levalbuterol HCl (Xopenex) 0.63 mg IH [id number] AMANDA Last Admin: 02/07/17 14:09 Dose: 0.63 mg - Labs Labs: 02/07/17 06:30 02/07/17 06:30 - Constitutional Appears: Well - Head Exam Head Exam: ATRAUMATIC, NORMAL INSPECTION, NORMOCEPHALIC - Eye Exam Eye Exam: EOMI, Normal appearance, PERRL Pupil Exam: NORMAL ACCOMODATION, PERRL - ENT Exam ENT Exam: Mucous Membranes Moist, Normal Exam - Neck Exam Neck Exam: Full ROM, Normal Inspection. absent: Lymphadenopathy - Respiratory Exam Respiratory Exam: Prolonged Expiratory Phase, Rhonchi - Cardiovascular Exam Cardiovascular Exam: REGULAR RHYTHM, +S1, +S2. absent: Murmur - GI/Abdominal Exam GI & Abdominal Exam: Soft, Normal Bowel Sounds. absent: Tenderness - Extremities Exam Extremities Exam: Full ROM, Normal Capillary Refill, Normal Inspection. absent : Joint Swelling, Pedal Edema - Neurological Exam Neurological Exam: Alert, Awake, CN II-XII Intact, Normal Gait, Oriented x3 - Psychiatric Exam Psychiatric exam: Normal Affect, Normal Mood - Skin Skin Exam: Dry, Intact, Normal Color, Warm Assessment and Plan (1) Community acquired bacterial pneumonia Assessment & Plan: ID follow up and anti biotic Status: Acute (2) Left lower lobe pneumonia Status: Acute (3) Muscular dystrophy Assessment & Plan: stable Status: Chronic - Assessment and Plan (Free Text) Plan: continue antibiotic, bronchodilators
--- NOTE | 2017-02-07 21:53 | CP.PCM.PN ---
Subjective - Date & Time of Evaluation Date of Evaluation: 02/07/17 Time of Evaluation: 21:50 - Subjective Subjective: Pt states he feels better. His breathing is better. Objective - Vital Signs/Intake and Output Vital Signs (last 24 hours): Temp Pulse Resp BP Pulse Ox 99.9 F H 89 20 128/88 95 02/07/17 17:35 02/07/17 07:30 02/07/17 07:30 02/07/17 07:30 02/07/17 07:30 Intake and Output: 02/07/17 02/08/17 18:59 06:59 Intake Total 780 420 Balance 780 420 - Medications Medications: Current Medications Acetaminophen (Tylenol 325mg Tab) 650 mg PO Q4H PRN PRN Reason: Fever >100.4 F Last Admin: 02/07/17 17:35 Dose: 650 mg Benzonatate (Tessalon Perles) 100 mg PO TID [facility] Last Admin: 02/07/17 17:35 Dose: 100 mg Ceftriaxone Sodium (Rocephin 1 Gram Ivpb) 1 gm in 100 mls @ 100 mls/hr IVPB DAILY AMANDA PRN Reason: Protocol Last Admin: 02/07/17 12:11 Dose: 100 mls/hr Azithromycin 250 mg/ Sodium (Chloride) 250 mls @ 167 mls/hr IVPB DAILY AMANDA PRN Reason: Protocol Last Admin: 02/07/17 09:58 Dose: 167 mls/hr Levalbuterol HCl (Xopenex) 0.63 mg IH [id number] [facility] Last Admin: 02/07/17 20:14 Dose: 0.63 mg - Labs Labs: 02/07/17 06:30 02/07/17 06:30 - Head Exam Head Exam: NORMAL INSPECTION - Eye Exam Eye Exam: Normal appearance - ENT Exam ENT Exam: Mucous Membranes Moist, Normal Exam - Neck Exam Neck Exam: Full ROM, Normal Inspection. absent: Lymphadenopathy - Respiratory Exam Respiratory Exam: Clear to Ausculation Bilateral, NORMAL BREATHING PATTERN. absent: Rales, Rhonchi, Wheezes - GI/Abdominal Exam GI & Abdominal Exam: Soft, Normal Bowel Sounds. absent: Tenderness - Rectal Exam Rectal Exam: NORMAL INSPECTION - Exam External exam: absent: Lacerations - Back Exam Back Exam: NORMAL INSPECTION - Neurological Exam Neurological Exam: Alert, Awake, CN II-XII Intact, Normal Gait, Oriented x3 - Psychiatric Exam Psychiatric exam: Normal Affect, Normal Mood Assessment and Plan - Assessment and Plan (Free Text) Assessment: pneumonia - CAP Muscuar Dystrophy smoking Plan: sepsis. on Abx. ID evaluation. Pulomnary and Neuro evaluation. Noahl joe PT evaluation. Follow labs. BCx.
[2017-02-08] MEDS: Levalbuterol 0.63 MG/3 ML Inhal Soln UD IH SCH ×4 (01:06→19:50)
[2017-02-08 07:16] LABS: HEMOGLOBIN 13.3 gm/dL (14.0-18.0); MEAN CELL VOLUME 87.3 fL (80.0-105.0); MEAN CORPUSCULAR HEMOGLOBIN 30.8 pg (25.0-35.0); MEAN CORPUSCULAR HGB CONC 35.3 g/dl (31.0-37.0); RBC 4.32 10^6/uL (3.5-6.1); RED CELL DISTRIBUTION WIDTH 13.6 % (11.5-14.5); WHITE BLOOD COUNT 12.2 10^3/ul (4.5-11.0)
[2017-02-08 07:44] LABS: ALB/GLOB RATIO 1.2 (1.1-1.8); ALBUMIN 3.9 g/dL (3.0-4.8); ALT/SGPT 148 U/L (7-56); AST/SGOT 117 U/L (15-59); BLOOD UREA NITROGEN 14 mg/dL (7-21); CALCIUM 8.9 mg/dL (8.4-10.5); GFR AFRICAN-AMERICAN > 60; GFR NON-AFRICAN AMERICAN > 60
[2017-02-08] MEDS: Azithromycin 250 MG in Sodium Chloride 0.9% 250 ML IVPB SCH (10:29)
[2017-02-08] MEDS: cefTRIAXone 1 gm 1 GM/100 ML BAG IVPB SCH (10:29)
--- NOTE | 2017-02-08 11:22 | CP.PCM.PN ---
Subjective - Date & Time of Evaluation Date of Evaluation: 02/08/17 Time of Evaluation: 07:40 - Subjective Subjective: FEVER EARLIER Objective - Vital Signs/Intake and Output Vital Signs (last 24 hours): Temp Pulse Resp BP Pulse Ox 99.7 F H 95 H 20 128/88 95 02/08/17 07:50 02/08/17 07:50 02/08/17 07:50 02/07/17 07:30 02/07/17 07:30 Intake and Output: 02/08/17 02/08/17 06:59 18:59 Intake Total 900 Balance 900 - Medications Medications: Current Medications Acetaminophen (Tylenol 325mg Tab) 650 mg PO Q4H PRN PRN Reason: Fever >100.4 F Last Admin: 02/07/17 22:23 Dose: 650 mg Benzonatate (Tessalon Perles) 100 mg PO TID [facility] Last Admin: 02/08/17 10:29 Dose: 100 mg Ceftriaxone Sodium (Rocephin 1 Gram Ivpb) 1 gm in 100 mls @ 100 mls/hr IVPB DAILY AMANDA PRN Reason: Protocol Last Admin: 02/08/17 10:29 Dose: 100 mls/hr Levalbuterol HCl (Xopenex) 0.63 mg IH [id number] [facility] Last Admin: 02/08/17 07:07 Dose: 0.63 mg Levofloxacin (Levaquin) 500 mg PO DAILY [facility] Stop: 02/15/17 11:21 - Labs Labs: 02/08/17 06:30 02/08/17 06:30 - Constitutional Appears: Well - Head Exam Head Exam: ATRAUMATIC, NORMAL INSPECTION, NORMOCEPHALIC - Eye Exam Eye Exam: EOMI, Normal appearance, PERRL Pupil Exam: NORMAL ACCOMODATION, PERRL - ENT Exam ENT Exam: Mucous Membranes Moist, Normal Exam - Neck Exam Neck Exam: Full ROM, Normal Inspection. absent: Lymphadenopathy - Respiratory Exam Respiratory Exam: Clear to Ausculation Bilateral, NORMAL BREATHING PATTERN - Cardiovascular Exam Cardiovascular Exam: REGULAR RHYTHM, +S1, +S2. absent: Murmur - GI/Abdominal Exam GI & Abdominal Exam: Soft, Normal Bowel Sounds. absent: Tenderness - Rectal Exam Rectal Exam: NORMAL INSPECTION - Exam Exam: Circumcision, NORMAL INSPECTION External exam: NORMAL EXTERNAL EXAM Speculum exam: NORMAL SPECULUM EXAM Bimanual exam: NORMAL BIMANUAL EXAM - Extremities Exam Extremities Exam: Full ROM, Normal Capillary Refill, Normal Inspection. absent : Joint Swelling, Pedal Edema - Back Exam Back Exam: NORMAL INSPECTION - Neurological Exam Neurological Exam: Alert, Awake, CN II-XII Intact, Normal Gait, Oriented x3 - Psychiatric Exam Psychiatric exam: Normal Affect, Normal Mood - Skin Skin Exam: Dry, Intact, Normal Color, Warm Assessment and Plan (1) Severe sepsis Status: Acute (2) Left lower lobe pneumonia Status: Acute (3) Community acquired bacterial pneumonia Status: Acute - Assessment and Plan (Free Text) Plan: DC AZITH USE PO LEV INC LFT IV JOHNNIE INC PROCA
[2017-02-08] MEDS: levoFLOXacin 500 MG TAB PO SCH (12:01)
--- NOTE | 2017-02-09 00:24 | CP.PCM.PN ---
Subjective - Date & Time of Evaluation Date of Evaluation: 02/08/17 Time of Evaluation: 15:00 - Subjective Subjective: THIS IS A 32 YEAR OLD MAN WITH H/O MUSCULAR DYSTROPHY WHO IS SEEING A NEUROLOGIST IN [place] WHO PRESENTED TO THE HOSPITAL WITH PRODUCTIVE COUGH, YELLOW SPUTUM, FEVER, CONGESTION FOR 4 DAYS. HE WAS FOUND TO HAVE LEFT LOWE LOBE PNEUMONIA FOR WHICH HE'S ON ANTIBIOTICSTHIS little better, stile has cough and SOB Objective - Vital Signs/Intake and Output Vital Signs (last 24 hours): Temp Pulse Resp BP Pulse Ox 99.2 F 95 H 20 128/88 95 02/08/17 23:06 02/08/17 07:50 02/08/17 07:50 02/07/17 07:30 02/07/17 07:30 Intake and Output: 02/08/17 02/09/17 18:59 06:59 Intake Total 740 Balance 740 - Medications Medications: Current Medications Acetaminophen (Tylenol 325mg Tab) 650 mg PO Q4H PRN PRN Reason: Fever >100.4 F Last Admin: 02/08/17 22:06 Dose: 650 mg Benzonatate (Tessalon Perles) 100 mg PO TID [facility] Last Admin: 02/08/17 10:29 Dose: 100 mg Ceftriaxone Sodium (Rocephin 1 Gram Ivpb) 1 gm in 100 mls @ 100 mls/hr IVPB DAILY AMANDA PRN Reason: Protocol Last Admin: 02/08/17 10:29 Dose: 100 mls/hr Levalbuterol HCl (Xopenex) 0.63 mg IH [id number] [facility] Last Admin: 02/08/17 19:50 Dose: 0.63 mg Levofloxacin (Levaquin) 500 mg PO DAILY [facility] Stop: 02/15/17 11:21 Last Admin: 02/08/17 12:01 Dose: 500 mg - Labs Labs: 02/08/17 06:30 02/08/17 06:30 - Constitutional Appears: In Acute Distress - Head Exam Head Exam: ATRAUMATIC, NORMAL INSPECTION, NORMOCEPHALIC - Eye Exam Eye Exam: EOMI, Normal appearance, PERRL Pupil Exam: NORMAL ACCOMODATION, PERRL - ENT Exam ENT Exam: Mucous Membranes Moist, Normal Exam - Neck Exam Neck Exam: Full ROM, Normal Inspection. absent: Lymphadenopathy - Respiratory Exam Respiratory Exam: Rales, Rhonchi - Cardiovascular Exam Cardiovascular Exam: REGULAR RHYTHM, +S1, +S2. absent: Murmur - GI/Abdominal Exam GI & Abdominal Exam: Soft, Normal Bowel Sounds. absent: Tenderness - Back Exam Back Exam: NORMAL INSPECTION - Neurological Exam Neurological Exam: Alert, Awake, CN II-XII Intact, Normal Gait, Oriented x3 - Skin Skin Exam: Dry, Intact, Normal Color, Warm Assessment and Plan (1) Community acquired bacterial pneumonia Assessment & Plan: antibiotic and broncho dilators Status: Acute (2) Left lower lobe pneumonia Status: Acute (3) Muscular dystrophy Assessment & Plan: supportive care Status: Chronic
[2017-02-09] MEDS: Levalbuterol 0.63 MG/3 ML Inhal Soln UD IH SCH ×4 (01:14→21:00)
[2017-02-09 07:48] LABS: BASO # 0.05 K/mm3 (0.0-2.0); BASO % 0.4 % (0.0-3.0); EOS # 0.2 (0.0-0.7); EOS % 1.7 % (1.5-5.0); GRAN # 8.88 (1.4-6.5); GRAN % 70.5 % (50.0-68.0); HEMOGLOBIN 13.9 gm/dL (14.0-18.0); LYMPH # 2.4 (1.2-3.4); LYMPH % 18.8 % (22.0-35.0); MEAN CELL VOLUME 86.5 fL (80.0-105.0); MEAN CORPUSCULAR HEMOGLOBIN 30.3 pg (25.0-35.0); MEAN CORPUSCULAR HGB CONC 35.1 g/dl (31.0-37.0); MEAN PLATELET VOLUME 9.7 fl (7.0-11.0); MONO # 1.1 (0.1-0.6); MONO % 8.6 % (1.0-6.0); PLATELET COUNT 308 10^3/uL (120.0-450.0); RBC 4.58 10^6/uL (3.5-6.1); RED CELL DISTRIBUTION WIDTH 13.7 % (11.5-14.5); WHITE BLOOD COUNT 12.6 10^3/ul (4.5-11.0)
[2017-02-09 07:49] LABS: ALB/GLOB RATIO 1.1 (1.1-1.8); ALBUMIN 3.9 g/dL (3.0-4.8); ALT/SGPT 306 U/L (7-56); AST/SGOT 221 U/L (15-59); BLOOD UREA NITROGEN 15 mg/dL (7-21); CALCIUM 9.3 mg/dL (8.4-10.5); GFR AFRICAN-AMERICAN > 60; GFR NON-AFRICAN AMERICAN > 60
[2017-02-09] MEDS: levoFLOXacin 500 MG TAB PO SCH (10:34)
[2017-02-09] MEDS: cefTRIAXone 1 gm 1 GM/100 ML BAG IVPB SCH (10:34)
--- NOTE | 2017-02-09 11:32 | CP.PCM.PN ---
Subjective - Date & Time of Evaluation Date of Evaluation: 02/09/17 Time of Evaluation: 09:35 - Subjective Subjective: STILL WITH LOW GRADE TEMPS Objective - Vital Signs/Intake and Output Vital Signs (last 24 hours): Temp Pulse Resp BP Pulse Ox 99.2 F 95 H 20 128/88 95 02/08/17 23:06 02/08/17 07:50 02/08/17 07:50 02/07/17 07:30 02/07/17 07:30 Intake and Output: 02/09/17 02/09/17 06:59 18:59 Intake Total 1220 Balance 1220 - Medications Medications: Current Medications Acetaminophen (Tylenol 325mg Tab) 650 mg PO Q4H PRN PRN Reason: Fever >100.4 F Last Admin: 02/08/17 22:06 Dose: 650 mg Benzonatate (Tessalon Perles) 100 mg PO TID [facility] Last Admin: 02/09/17 10:34 Dose: 100 mg Meropenem 1g/NS 100mL IVPB (Meropenem 1g/Ns 100ml Ivpb) 1 gm in 100 mls @ 100 mls/hr IVPB Q8 AMANDA PRN Reason: Protocol Stop: 02/18/17 11:31 Levalbuterol HCl (Xopenex) 0.63 mg IH [id number] [facility] Last Admin: 02/09/17 07:06 Dose: 0.63 mg Levofloxacin (Levaquin) 500 mg PO DAILY [facility] Stop: 02/15/17 11:21 Last Admin: 02/09/17 10:34 Dose: 500 mg - Labs Labs: 02/09/17 07:00 02/09/17 07:00 - Constitutional Appears: Well - Head Exam Head Exam: ATRAUMATIC, NORMAL INSPECTION, NORMOCEPHALIC - Eye Exam Eye Exam: EOMI, Normal appearance, PERRL Pupil Exam: NORMAL ACCOMODATION, PERRL - ENT Exam ENT Exam: Mucous Membranes Moist, Normal Exam - Neck Exam Neck Exam: Full ROM, Normal Inspection. absent: Lymphadenopathy - Respiratory Exam Respiratory Exam: Clear to Ausculation Bilateral, NORMAL BREATHING PATTERN - Cardiovascular Exam Cardiovascular Exam: REGULAR RHYTHM, +S1, +S2. absent: Murmur - GI/Abdominal Exam GI & Abdominal Exam: Soft, Normal Bowel Sounds. absent: Tenderness - Rectal Exam Rectal Exam: NORMAL INSPECTION - Exam Exam: Circumcision, NORMAL INSPECTION External exam: NORMAL EXTERNAL EXAM Speculum exam: NORMAL SPECULUM EXAM Bimanual exam: NORMAL BIMANUAL EXAM - Extremities Exam Extremities Exam: Full ROM, Normal Capillary Refill, Normal Inspection. absent : Joint Swelling, Pedal Edema - Back Exam Back Exam: NORMAL INSPECTION - Neurological Exam Neurological Exam: Alert, Awake, CN II-XII Intact, Normal Gait, Oriented x3 - Psychiatric Exam Psychiatric exam: Normal Affect, Normal Mood - Skin Skin Exam: Dry, Intact, Normal Color, Warm Assessment and Plan (1) Severe sepsis Status: Acute (2) Left lower lobe pneumonia Status: Acute (3) Community acquired bacterial pneumonia Status: Acute - Assessment and Plan (Free Text) Plan: CT OF CHEST MERR /ANNALEE BLAIR U/S OF ABD
[2017-02-09] MEDS: Meropenem 1g/NS 100mL IVPB 1 GM/100 ML PIGGYBACK IVPB SCH ×3 (12:46→21:25)
--- NOTE | 2017-02-09 12:46 | CT ---
PROCEDURE: CT Chest without contrast HISTORY: fever COMPARISON: 02/06/2017 single-view chest TECHNIQUE: Contiguous axial images were obtained through the chest without intravenous contrast enhancement. Sagittal and coronal reconstructions were performed. Maximum intensity projection (MIP) reconstructed images in the following planes: Axial projection only Radiation dose (DLP): 472.74 mGy-cm. This CT exam was performed using one or more of the following dose reduction techniques: Automated exposure control, adjustment of the mA and/or kV according to patient size, and/or use of iterative reconstruction technique. FINDINGS: LUNGS: Multifocal infiltrates. The largest occupies both anterior and posterior segments of the left upper lobe. Additional subsegmental infiltrates identified in the left lower lobe. Findings likely represent multifocal pneumonia. Left lower lobe consolidative change appears improved compared the previous study. The findings in the left upper lobe are new. MEDIASTINUM: Unremarkable thoracic aorta. No aneurysm. Normal sized heart. Main pulmonary artery unremarkable. No vascular congestion. No lymphadenopathy. PLEURA: No pleural fluid. No pneumothorax. BONES: No fracture. No destructive lesion. UPPER ABDOMEN: Grossly unremarkable. OTHER FINDINGS: None. IMPRESSION: Left upper, left lower lobe infiltrate consistent with acute pneumonia. The finding in the left upper lobe is new. The finding in the left lower lobe displays interval improvement.
--- NOTE | 2017-02-09 12:47 | US ---
HISTORY: Increasing LFTs. COMPARISON: None. TECHNIQUE: Sonographic evaluation of the abdomen. FINDINGS: LIVER: Measures 14.2 cm. Hepatopedal blood flow. Fatty infiltration manifest ultrasonographically as increased echogenicity of the liver parenchyma. No mass. No intrahepatic bile duct dilatation. GALLBLADDER: Unremarkable. No gallstones. COMMON BILE DUCT: Measures 4.8 mm. No stones. No dilatation. PANCREAS: Unremarkable as visualized. No mass. No ductal dilatation. RIGHT KIDNEY: Measures 5.7 x 12.7cm. Normal echogenicity. No calculus, mass, or hydronephrosis. LEFT KIDNEY: Measures 6.3 x 13.1cm. Normal echogenicity. No calculus, mass, or hydronephrosis. SPLEEN: Normal in size and contour. No mass. AORTA: No aneurysmal dilatation. IVC: Unremarkable. OTHER FINDINGS: None. IMPRESSION: Hepatic steatosis. Otherwise no acute/ significant findings.
--- NOTE | 2017-02-09 23:08 | CP.PCM.PN ---
Subjective - Date & Time of Evaluation Date of Evaluation: 02/09/17 Time of Evaluation: 11:00 - Subjective Subjective: THIS IS A 32 YEAR OLD MAN WITH H/O MUSCULAR DYSTROPHY WHO IS SEEING A NEUROLOGIST IN [place] WHO PRESENTED TO THE HOSPITAL WITH PRODUCTIVE COUGH, YELLOW SPUTUM, FEVER, CONGESTION FOR 4 DAYS. HE WAS FOUND TO HAVE LEFT LOWE LOBE PNEUMONIA FOR WHICH HE'S ON ANTIBIOTICSTHIS little better, stile has cough and SOB Objective - Vital Signs/Intake and Output Vital Signs (last 24 hours): Temp Pulse Resp BP Pulse Ox 98.7 F 79 18 121/71 100 02/09/17 16:13 02/09/17 16:13 02/09/17 16:13 02/09/17 16:13 02/09/17 16:13 Intake and Output: 02/09/17 02/10/17 18:59 06:59 Intake Total 960 Balance 960 - Medications Medications: Current Medications Acetaminophen (Tylenol 325mg Tab) 650 mg PO Q4H PRN PRN Reason: Fever >100.4 F Last Admin: 02/08/17 22:06 Dose: 650 mg Benzonatate (Tessalon Perles) 100 mg PO TID [facility] Last Admin: 02/09/17 17:39 Dose: 100 mg Meropenem 1g/NS 100mL IVPB (Meropenem 1g/Ns 100ml Ivpb) 1 gm in 100 mls @ 100 mls/hr IVPB Q8 AMANDA PRN Reason: Protocol Stop: 02/18/17 11:31 Last Admin: 02/09/17 21:25 Dose: 100 mls/hr Levalbuterol HCl (Xopenex) 0.63 mg IH [id number] [facility] Last Admin: 02/09/17 21:00 Dose: 0.63 mg Levofloxacin (Levaquin) 500 mg PO DAILY [facility] Stop: 02/15/17 11:21 Last Admin: 02/09/17 10:34 Dose: 500 mg - Labs Labs: 02/09/17 07:00 02/09/17 07:00 - Constitutional Appears: No Acute Distress - Head Exam Head Exam: ATRAUMATIC, NORMAL INSPECTION, NORMOCEPHALIC - ENT Exam ENT Exam: Mucous Membranes Moist, Normal Exam - Neck Exam Neck Exam: Full ROM, Normal Inspection. absent: Lymphadenopathy - Respiratory Exam Respiratory Exam: Rales, Rhonchi - Cardiovascular Exam Cardiovascular Exam: REGULAR RHYTHM, +S1, +S2. absent: Murmur - GI/Abdominal Exam GI & Abdominal Exam: Soft, Normal Bowel Sounds. absent: Tenderness - Back Exam Back Exam: NORMAL INSPECTION - Neurological Exam Neurological Exam: Alert, Awake, CN II-XII Intact, Normal Gait, Oriented x3 Assessment and Plan (1) Community acquired bacterial pneumonia Assessment & Plan: broncho dilators and anti biotics Status: Acute (2) Left lower lobe pneumonia Status: Acute (3) Muscular dystrophy Assessment & Plan: supportive care Status: Chronic
[2017-02-10] MEDS: Levalbuterol 0.63 MG/3 ML Inhal Soln UD IH SCH ×2 (02:35→07:09)
[2017-02-10] MEDS: Meropenem 1g/NS 100mL IVPB 1 GM/100 ML PIGGYBACK IVPB SCH (06:55)
[2017-02-10 09:30] VITALS: BP 146/79; PULSE 90; RESP 20; TEMP 98; O2SAT 96
[2017-02-10] MEDS: levoFLOXacin 500 MG TAB PO SCH (09:48)
--- NOTE | 2017-02-10 10:23 | CP.PCM.PN ---
Subjective - Date & Time of Evaluation Date of Evaluation: 02/10/17 Time of Evaluation: 09:35 - Subjective Subjective: DOING WELL Objective - Vital Signs/Intake and Output Vital Signs (last 24 hours): Temp Pulse Resp BP Pulse Ox 98 F 90 20 146/79 96 02/10/17 09:24 02/10/17 09:24 02/10/17 09:24 02/10/17 09:24 02/10/17 09:24 Intake and Output: 02/10/17 02/10/17 06:59 18:59 Intake Total 1200 Balance 1200 - Medications Medications: Current Medications Acetaminophen (Tylenol 325mg Tab) 650 mg PO Q4H PRN PRN Reason: Fever >100.4 F Last Admin: 02/08/17 22:06 Dose: 650 mg Benzonatate (Tessalon Perles) 100 mg PO TID [facility] Last Admin: 02/10/17 09:48 Dose: 100 mg Meropenem 1g/NS 100mL IVPB (Meropenem 1g/Ns 100ml Ivpb) 1 gm in 100 mls @ 100 mls/hr IVPB Q8 AMANDA PRN Reason: Protocol Stop: 02/18/17 11:31 Last Admin: 02/10/17 06:55 Dose: 100 mls/hr Levalbuterol HCl (Xopenex) 0.63 mg IH [id number] [facility] Last Admin: 02/10/17 07:09 Dose: 0.63 mg Levofloxacin (Levaquin) 500 mg PO DAILY [facility] Stop: 02/15/17 11:21 Last Admin: 02/10/17 09:48 Dose: 500 mg - Labs Labs: 02/09/17 07:00 02/09/17 07:00 - Constitutional Appears: Well - Head Exam Head Exam: ATRAUMATIC, NORMAL INSPECTION, NORMOCEPHALIC - Eye Exam Eye Exam: EOMI, Normal appearance, PERRL Pupil Exam: NORMAL ACCOMODATION, PERRL - ENT Exam ENT Exam: Mucous Membranes Moist, Normal Exam - Neck Exam Neck Exam: Full ROM, Normal Inspection. absent: Lymphadenopathy - Respiratory Exam Respiratory Exam: Clear to Ausculation Bilateral, NORMAL BREATHING PATTERN - Cardiovascular Exam Cardiovascular Exam: REGULAR RHYTHM, +S1, +S2. absent: Murmur - GI/Abdominal Exam GI & Abdominal Exam: Soft, Normal Bowel Sounds. absent: Tenderness - Rectal Exam Rectal Exam: NORMAL INSPECTION - Exam Exam: Circumcision, NORMAL INSPECTION External exam: NORMAL EXTERNAL EXAM Speculum exam: NORMAL SPECULUM EXAM Bimanual exam: NORMAL BIMANUAL EXAM - Extremities Exam Extremities Exam: Full ROM, Normal Capillary Refill, Normal Inspection. absent : Joint Swelling, Pedal Edema - Back Exam Back Exam: NORMAL INSPECTION - Neurological Exam Neurological Exam: Alert, Awake, CN II-XII Intact, Normal Gait, Oriented x3 - Psychiatric Exam Psychiatric exam: Normal Affect, Normal Mood - Skin Skin Exam: Dry, Intact, Normal Color, Warm Assessment and Plan (1) Severe sepsis Status: Acute (2) Left lower lobe pneumonia Status: Acute (3) Community acquired bacterial pneumonia Status: Acute - Assessment and Plan (Free Text) Plan: PO LEV FOLLOW UP IMAGING TO RESOLUTUION
== END 2017-02-10 16:11 | disposition home or self-care (01) | DRG 871 ==
LOC: ED 06:25 → ERH 08:46 → 5RNO 10:05 → 5RSO 02-08 21:11
PROVIDERS: ADMIT Internal Medicine Nephrology; ATTEND Internal Medicine Nephrology
DX: A41.9 Sepsis, unspecified organism (principal); J15.9 Unspecified bacterial pneumonia; G71.0 Muscular dystrophy; R65.20 Severe sepsis without septic shock; R40.2412 Glasgow coma scale score 13-15, at arrival to emergency department; F17.210 Nicotine dependence, cigarettes, uncomplicated